=== PATIENT | female | born 1955 | race Caucasian/White ===

== ENCOUNTER 2017-02-12 10:40 | Outpatient (CLI) | payer BC ==
--- NOTE | 2017-02-28 11:43 | Mammography Report ---
DIGITAL SCREENING MAMMOGRAM: 02/12/2017 CLINICAL INDICATION: A 61-year-old with family history of breast cancer for screening. COMPARISON: Films from [place], [place] dated 10/27/2015, 05/12/2014, 05/28/2012, 04/10/2011. TECHNIQUE: Routine CC and MLO projections were obtained of the breasts. FINDINGS: The breasts again demonstrate scattered fibroglandular densities bilaterally. Circumscrib ed nodules in the left breast are stable. Coarse and punctate, typically benign calcifications are p resent. No suspicious masses, clustered microcalcifications, or regions of architectural distortion are identified. IMPRESSION: BENIGN FINDINGS. RECOMMENDATION: Routine annual screening unless otherwise clinically indicated. BIRADS CATEGORY 2 - BENIGN FINDINGS. STANDARD QUALIFYING STATEMENTS 1. This examination was reviewed with the aid of Computer-Aided Detection (CAD). 2. A negative or benign imaging report should not delay biopsy if clinically suspicious findings are present. Consider surgical consultation if warranted. More than 5% of cancers are not identified by i maging. 3. Dense breasts may obscure an underlying neoplasm. JOB #: [id number] EXT JOB #:[id number]
== END 2017-02-12 10:41 | disposition home or self-care (01) ==
LOC: DI 10:40
PROVIDERS: ATTEND Nurse Practitioner Family
DX: Z12.31 Encounter for screening mammogram for malignant neoplasm of breast (principal)
CPT/HCPCS: 77067

== ENCOUNTER 2017-02-12 10:43 | Outpatient (CLI) | payer BC ==
--- NOTE | 2017-02-13 14:18 | XRAY Report ---
RIGHT INDEX AND MIDDLE FINGERS, THREE VIEWS: 02/12/2017 CLINICAL HISTORY: Finger injury. FINDINGS: Mild soft tissue swelling is noted about the index and middle fingers. No acute fracture is seen. Spurring is noted about the periarticular margins of the distal interphalangeal joints of the index and middle fingers. This spurring is most pronounced along the dorsal aspect of the base of the distal phalanx of the middle finger. Prominent spurring and bone eburnation is also noted at the head of the middle phalanx of the middle finger. Subchondral cyst formation is noted in the head of the middle phalanx. Severe joint space narrowing is seen at the distal interphalangeal joint of both the index and middle fingers with findings especially pronounced in the middle finger. Mild soft tissue swelling is noted involving the index and middle fingers without fracture. IMPRESSION: SIGNIFICANT OSTEOARTHRITIS IS SEEN INVOLVING THE DISTAL INTERPHALANGEAL JOINTS OF THE INDEX AND MIDDLE FINGERS WITH FINDINGS MOST PRONOUNCED IN THE DISTAL INTERPHALANGEAL JOINT OF THE MIDDLE FINGER. JOB #: [id number] EXT JOB #: [id number] [facility]
--- NOTE | 2017-02-13 15:17 | XRAY Report ---
RIGHT HAND THREE VIEWS: 02/12/2017 CLINICAL HISTORY: Right hand injury. FINDINGS: Soft tissue swelling is seen involving the index and middle fingers. Significant narrowing of the distal interphalangeal joints of the index, middle, ring, and little fingers. Most pronounced osteoarthritic change is seen in the distal interphalangeal joint of the right middle finger. Signif icant periarticular spur formation is seen especially about the distal interphalangeal joint of the m iddle finger. Mild narrowing is noted at the articulation at the base of the 1st metacarpal and adjacent trapezium. Mild narrowing is seen at the 1st MP joint. IMPRESSION: 1. MILD SOFT TISSUE SWELLING IS SEEN INVOLVING THE INDEX AND MIDDLE FINGERS WITHOUT FRACTURE. 2. OSTEOARTHRITIS IS NOTED INVOLVING THE RIGHT HAND ESPECIALLY THE DISTAL INTERPHALANGEAL JOINTS. JOB #: [id number] EXT JOB #:[id number]
--- NOTE | 2017-02-13 15:25 | DEXA Report ---
DEXA SCAN: 02/12/2017 CLINICAL HISTORY: A 61-year-old female, postmenopausal. TECHNIQUE: Dual energy x-ray absorptiometry (DXA) was performed on a [employer] system. Regions measured are the lumbar spine, femur, neck in total. COMPARISON: None. In accordance with the International Society for Clinical Densitometry (ISCD) guidelines, data from previous exams may be reanalyzed using current recommendations and techniques. This is done to allow a more accurate basis for comparison with the current study. FINDINGS: The data for the lumbar spine is as follows: REGION BMD (g/cm/cm) T-SCORE Z-SCORE L1 0.860 -2.2 -0.9 L2 0.935 -2.2 -0.8 L3 1.109 -0.8 0.6 L4 1.076 -1.0 0.3 TOTAL 1.000 -1.5 -0.1 NOTE: All evaluable vertebrae are used for classification. The data for the hip is as follows: REGION BMD (g/cm/cm) T-SCORE Z-SCORE Neck 0.736 -2.2 -0.8 TOTAL 0.858 -1.2 -0.2 NOTE: The femoral neck or total proximal femur, whichever is lowest, is used for classification. * Denotes significant change at the 95% confidence level. Denotes dissimilar scan types or analysis methods. IMPRESSION: THE WHO CLASSIFICATION BASED ON THE INTERNATIONAL REFERENCE STANDARD IS OSTEOPENIA. THE FRACTURE RISK IS INCREASED. RECOMMENDATION: Patients with diagnosis of osteoporosis or osteopenia should have regular bone mineral density assessment. For those eligible for Medicare, routine testing is allowed once every 2 years. Testing frequency can be increased for patients who have rapidly progressing disease or for those who are receiving medical therapy to restore bone mass. COMMENT: World Health Organization (WHO) definitions for osteoporosis and osteopenia: NORMAL BMD: T-score at -1.0 or higher, fracture risk is low. OSTEOPENIA BMD: T-score between -1.0 and -2.5, fracture risk is increased. OSTEOPOROSIS BMD: T-score at -2.5 or lower, fracture risk high. National Osteoporosis Foundation recommends: 1. Obtain adequate dietary calcium (at least 1200 mg per day) and vitamin D (400 -800 international units per day). 2. Participate, as appropriate, in regular weightbearing and muscle- strengthening exercise. 3. Avoid tobacco use and reduce alcohol and caffeine intake. 4. For more detailed information see the website at www.NOF.org. MTDD
== END 2017-02-12 10:44 | disposition home or self-care (01) ==
LOC: DI 10:43
PROVIDERS: ATTEND Nurse Practitioner Family
DX: Z13.820 Encounter for screening for osteoporosis (principal); M85.89 Other specified disorders of bone density and structure, multiple sites; M19.041 Primary osteoarthritis, right hand; M79.89 Other specified soft tissue disorders
CPT/HCPCS: 73140; 77080

== ENCOUNTER 2017-10-18 11:33 | Outpatient (CLI) | payer OTHER ==
--- NOTE | 2017-10-19 10:01 | XRAY Report ---
DATE OF SERVICE: 10/18/2017 TWO VIEW CHEST: 10/18/2017 CLINICAL INDICATION: Chronic cough. FINDINGS: Frontal and lateral views of the chest demonstrate a normal cardiac silhouette. The lungs are clear. No effusion or pneumothorax is present. IMPRESSION: NORMAL CHEST. TD: 10/19/2017 11:00
== END 2017-10-18 11:34 | disposition home or self-care (01) ==
LOC: DI.S 11:33
PROVIDERS: ATTEND Nurse Practitioner Family
DX: R05 Cough (principal)
CPT/HCPCS: 71046

== ENCOUNTER 2018-02-05 13:13 | Outpatient (CLI) | payer OTHER ==
--- NOTE | 2018-02-05 14:25 | XRAY Report ---
TWO VIEW CHEST: 02/05/2018 CLINICAL INDICATION: Cough, right clavicular prominence. COMPARISON: 10/18/2017. FINDINGS: Frontal and lateral views of the chest demonstrate a normal cardiac silhouette. The lungs remain clear. No effusion or pneumothorax is seen. No gross bony abnormality is appreciated in the right clavicle on this single view. IMPRESSION: NORMAL CHEST, UNCHANGED. TD: 02/05/2018 13:57
== END 2018-02-05 13:14 | disposition home or self-care (01) ==
LOC: DI.S 13:13
PROVIDERS: ATTEND Registered Nurse
DX: R05 Cough (principal); M95.8 Other specified acquired deformities of musculoskeletal system
CPT/HCPCS: 71046

== ENCOUNTER 2018-03-15 09:12 | Outpatient (CLI) | payer OTHER ==
--- NOTE | 2018-03-18 13:25 | Mammography Report ---
Procedure Date: 03/15/2018 Accession Number: [id number] / [id number] Procedure: MGS - Screening Mammo Dig Bilat CPT Code: FULL RESULT: EXAM: Screening Mammo Dig Bilat DATE: 03/15/2018 9:28 AM CLINICAL HISTORY: 62-year-old nulliparous patient with family history of breast cancer for screening TECHNIQUE: Bilateral CC and MLO views were obtained. COMPARISON: 02/12/2017, 10/27/2015, 05/12/2014, 05/28/2012, 04/10/2011 FINDINGS: The breasts demonstrate scattered fibroglandular densities bilaterally. Coarse, typically benign calcifications are present. Circumscribed nodules in the left breast are stable. No suspicious masses, clustered microcalcifications, or regions of architectural distortion are identified. IMPRESSION: Benign findings RECOMMENDATION: Routine annual screening unless otherwise clinically indicated. BIRADS CATEGORY 2: Benign findings STANDARD QUALIFYING STATEMENTS: 1. This examination was reviewed with the aid of Computer-Aided Detection (CAD). 2. A negative or benign imaging report should not delay biopsy if clinically suspicious findings are present. Consider surgical consultation if warrented. More than 5% of cancers are not identified by imaging. 3. Dense breasts may obscure an underlying neoplasm.
== END 2018-03-15 09:13 | disposition home or self-care (01) ==
LOC: DI.S 09:12
PROVIDERS: ATTEND Registered Nurse
DX: Z12.31 Encounter for screening mammogram for malignant neoplasm of breast (principal); Z80.3 Family history of malignant neoplasm of breast
CPT/HCPCS: 77067

== ENCOUNTER 2018-07-22 09:39 | Day surgery (SDC) | payer OTHER ==
[2018-07-22] MEDS ORDERED: LACTATED RINGERS 1,000 ML IV ONE (10:15)
[2018-07-22] MEDS ORDERED: MIDAZOLAM 2 MG/2 ML VIAL IVP ONE (11:50)
[2018-07-22] MEDS ORDERED: fentaNYL 250 MCG/5 ML VIAL IVP ONE (11:50)
[2018-07-22 12:11] VITALS: BP 131/78
== END 2018-07-22 09:40 | disposition home or self-care (01) ==
LOC: SDS 09:39
PROVIDERS: ATTEND Surgery
PROC: 0DJD8ZZ Inspection of Lower Intestinal Tract, Via Natural or Artificial Opening Endoscopic (ICD-10-PCS; principal; 2018-07-22 10:45)
DX: R19.4 Change in bowel habit (principal); K64.8 Other hemorrhoids; Z80.0 Family history of malignant neoplasm of digestive organs; Z83.71 Family history of colonic polyps; F17.210 Nicotine dependence, cigarettes, uncomplicated
CPT/HCPCS: 45378; J3010; J7120

== ENCOUNTER 2018-09-28 12:40 | Outpatient (CLI) | payer OTHER ==
[2018-09-28 13:26] LABS: CREATININE 0.8 mg/dL (0.4-1.0)
--- NOTE | 2018-09-28 15:30 | CT Report ---
Reason: LEFT UPPER QUADRANT PAIN Procedure Date: 09/28/2018 Accession Number: [id number] / [id number] Procedure: CT - Abdomen/Pelvis W/ CPT Code: FULL RESULT: EXAM: CT ABDOMEN AND PELVIS EXAM DATE: 09/28/2018 03:00 PM. CLINICAL HISTORY: Left upper quadrant pain COMPARISONS: None. TECHNIQUE: Routine helical CT imaging was performed through the abdomen and pelvis. IV contrast: 100 mL Optiray 320. Enteric contrast: None. Reconstructions: Coronal and sagittal. In accordance with CT protocol optimization, one or more of the following dose reduction techniques were utilized for this exam: automated exposure control, adjustment of mA and/or KV based on patient size, or use of iterative reconstructive technique. FINDINGS: Lung Bases: Mild linear atelectasis and/or scarring in the inferomedial right middle lobe, inferior lingula, and left lower lobe base. Liver: Diffuse low attenuation of the hepatic parenchyma relative to the spleen, suggesting steatosis. Ill-defined low attenuation area with equivocal peripheral enhancement in segment 4B measuring approximately 3.5 x 2.5 x 2.5 cm (12/13, 02/07). Gallbladder/Bile Ducts: Unremarkable. No visualized stones or biliary ductal dilatation. Spleen: Normal. Pancreas: Normal. Adrenal Glands: Normal. Kidneys and Ureters: Tup circumscribed subcentimeter round hypoattenuating foci in the left renal cortex likely represent cysts. No stones, hydronephrosis, or hydroureter. Peritoneal Cavity/Bowel: No evidence for bowel obstruction or acute inflammatory process. The appendix is not seen. No free fluid, pneumoperitoneum, or adenopathy. Pelvic Organs: Post hysterectomy. The bladder is within normal limits. Vasculature: Mild atherosclerotic calcifications within the aorta and iliac arteries. Bones: Mild to moderate multilevel degenerative disk disease and facet arthropathy. No acute bony abnormality. Other: None. IMPRESSION: 1. Indeterminate low attenuation area in hepatic segment 4B with equivocal peripheral enhancement, which could represent hepatic mass lesion or atypical appearance of focal fatty infiltration. Recommend further characterization with liver protocol MRI abdomen with/without contrast. 2. No acute inflammatory or obstructive process identified to explain left upper quadrant pain. RADIA
[2018-09-28] MEDS ORDERED: IOVERSOL 320 100 ML VIAL IVP ONE (15:33)
[2018-09-28] MEDS ORDERED: IOVERSOL 320 50 ML VIAL PO ONE (15:33)
== END 2018-09-28 12:41 | disposition home or self-care (01) ==
LOC: LAB 12:40
PROVIDERS: ATTEND Nurse Practitioner Family
DX: R10.12 Left upper quadrant pain (principal)
CPT/HCPCS: 36415; 74177; 82565

== ENCOUNTER 2018-10-31 12:42 | Outpatient (CLI) | payer OTHER ==
[2018-10-31] MEDS ORDERED: GADOBUTROL 7.5 MMOL/7.5 ML VIAL ONE (13:10)
[2018-10-31] MEDS ORDERED: GADOBUTROL 7.5 MMOL/7.5 ML VIAL IVP ONE (14:17)
--- NOTE | 2018-10-31 17:17 | MRI Report ---
Reason: ABNORMAL FINDINGS ON DIAGNOSTIC IMAGING OF OTHER A Procedure Date: 10/31/2018 Accession Number: [id number] / [id number] Procedure: MRI - Abdomen W/WO CPT Code: FULL RESULT: EXAM: MR ABDOMEN WITH AND WITHOUT CONTRAST (MR LIVER) EXAM DATE: 10/31/2018 01:10 PM. CLINICAL HISTORY: Abnormal findings on diagnostic imaging. COMPARISON: ABDOMEN/PELVIS W/ 09/28/2018 2:50 PM. TECHNIQUE: Multiplanar breath-hold T1, T2, and DWI sequences obtained through the abdomen on an MR scanner. Images obtained before and after administration of 7 mL Gadavist intravenous contrast. Multiphase postcontrast images obtained of the liver and abdomen. FINDINGS: Lung Bases: Unremarkable. Liver: Mild diffuse fatty liver infiltration. There is a 3.1 x 2.8 x 3.5 cm region of more focal geographic fat deposition within posteromedial left liver lobe, mostly within segment 4B. There are more than 10 scattered tiny T2 hyperintense foci that are likely due to small cysts. Gallbladder: The gallbladder is partially distended and appears normal with no wall thickening or stone. Bile ducts: No intrahepatic or extrahepatic duct dilatation Pancreas: The pancreas appears normal with no mass or ductal dilatation. Spleen: The spleen appears normal. Kidneys: The kidneys appear normal with no mass or hydronephrosis. Small left upper renal cyst. Adrenals: The adrenals appear normal. Bowel: The visualized segments of the small bowel and colon appear normal with no inflammation or obstruction. Retroperitoneum: The retroperitoneal structures appear normal with no mass or lymphadenopathy. Other: None IMPRESSION: 1. Diffuse fatty liver infiltration with 3.5 cm geographic region of more pronounced fatty deposition within segment 4B. 2. Multiple small scattered simple liver cysts. 3. No suspicious liver lesion. RADIA
== END 2018-10-31 12:43 | disposition home or self-care (01) ==
LOC: DI 12:42
PROVIDERS: ATTEND Nurse Practitioner Family
DX: R93.5 Abnormal findings on diagnostic imaging of other abdominal regions, including retroperitoneum (principal); K76.0 Fatty (change of) liver, not elsewhere classified; K76.89 Other specified diseases of liver
CPT/HCPCS: 74183; A9585

== ENCOUNTER 2018-12-17 12:15 | Emergency (ER) | payer OTHER ==
[2018-12-17 12:25] VITALS: BP 149/72
== END 2018-12-17 13:25 | disposition left against medical advice (07) ==
LOC: ED 12:15
DX: Z53.21 Procedure and treatment not carried out due to patient leaving prior to being seen by health care provider (principal)

== ENCOUNTER 2018-12-19 08:33 | Outpatient (CLI) | payer OTHER ==
--- NOTE | 2018-12-19 11:22 | CT Report ---
Reason: ATELECTASIS,COUGH Procedure Date: 12/19/2018 Accession Number: [id number] / [id number] Procedure: CT - CHEST WO CPT Code: FULL RESULT: EXAM: CT CHEST EXAM DATE: 12/19/2018 08:45 AM. CLINICAL HISTORY: Atelectasis, cough. COMPARISONS: None. TECHNIQUE: Routine helical CT imaging was performed through the chest. IV contrast: None. Reconstructions: Coronal and sagittal. In accordance with CT protocol optimization, one or more of the following dose reduction techniques were utilized for this exam: automated exposure control, adjustment of mA and/or KV based on patient size, or use of iterative reconstructive technique. FINDINGS: Lungs/Pleura: There is a small amount of scarring/atelectasis of the right middle lobe and lingular regions without air space disease detected in other areas. There are no suspicious pulmonary nodules. There is no pleural effusion or pneumothorax. Mediastinum: There is no hilar or mediastinal lymphadenopathy. The aorta is mildly calcified. There is no cardiomegaly or pericardial effusion. Bones: Unremarkable. Visualized Abdomen: Unremarkable. Other: None. 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 Otherwise, no active airspace disease. RADIA
== END 2018-12-19 08:34 | disposition home or self-care (01) ==
LOC: DI 08:33
PROVIDERS: ATTEND Nurse Practitioner Family
DX: J98.11 Atelectasis (principal); R05 Cough
CPT/HCPCS: 71250

== ENCOUNTER 2019-01-14 09:35 | Outpatient (CLI) | payer OTHER ==
[2019-01-14] MEDS ORDERED: ALBUTEROL NEB 2.5 MG/3 ML INH ONE (10:30)
== END 2019-01-14 09:36 | disposition home or self-care (01) ==
LOC: RT 09:35
PROVIDERS: ATTEND Nurse Practitioner Family
DX: R05 Cough (principal)
CPT/HCPCS: 94010

== ENCOUNTER 2019-03-15 08:42 | Outpatient (CLI) | payer OTHER ==
--- NOTE | 2019-03-17 09:20 | CT Report ---
Reason: COUGH Procedure Date: 03/15/2019 Accession Number: [id number] / [id number] Procedure: CT - CHEST WO CPT Code: FULL RESULT: EXAM: CT CHEST EXAM DATE: 03/15/2019 09:12 AM. CLINICAL HISTORY: Cough. COMPARISONS: CHEST W/O 12/19/2018 8:41 AM. ABDOMEN W/WO 10/31/2018 1:10 PM. TECHNIQUE: Routine helical CT imaging was performed through the chest. IV contrast: None. Reconstructions: Coronal and sagittal. In accordance with CT protocol optimization, one or more of the following dose reduction techniques were utilized for this exam: automated exposure control, adjustment of mA and/or KV based on patient size, or use of iterative reconstructive technique. FINDINGS: Lungs/Pleura: Previously seen scarring/atelectasis in the lingula and right middle lobe has decreased with only a small amount remaining, therefore previously predominantly atelectasis. A 2 mm nodule is seen in the right lower lobe on image 35 series 4. No other active airspace disease is detected. There is no pleural effusion or pneumothorax. Mediastinum: Minimal to mild calcifications of the aortic arch. No adenopathy or masses. The heart and great vessels are normal. Bones: There are no aggressive osseous lesions. Visualized Abdomen: Hypodense area in segment 4B, previously characterized by MRI as focal fatty infiltration. This is not characterized on today's study. Other: None. IMPRESSION: Interval decrease in previously seen consolidative changes in the lingula and right middle lobe. Singular sub-3 mm lower lobe nodule on the left. Recommend follow-up of the described nodule(s) according to the following guidelines: Fleischner Society Recommendations 2017 MacMahon et al. Radiology 2017 Solid Nodules-Low Risk Patients: <6 mm (single or multiple) - No routine follow-up* Solid Nodules-High Risk Patients: <6 mm (single or multiple) -Optional CT at 12 months* RADIA
== END 2019-03-15 08:43 | disposition home or self-care (01) ==
LOC: DI 08:42
PROVIDERS: ATTEND Student in an Organized Health Care Education/Training Program
DX: R05 Cough (principal); R91.1 Solitary pulmonary nodule
CPT/HCPCS: 71250

== ENCOUNTER 2019-04-16 11:09 | Outpatient (CLI) | payer OTHER ==
--- NOTE | 2019-04-17 09:38 | Mammography Report ---
Reason: SCREENING MAMMO, [facility] BREAST CANC[facility] Procedure Date: 04/16/2019 Accession Number: [id number] / [id number] Procedure: MGS - Screening Mammo Dig Bilat CPT Code: FULL RESULT: EXAM: Screening Mammo Dig Bilat DATE: 04/16/2019 11:43 AM CLINICAL HISTORY: History of early menses. History of nulliparity. Screening encounter. Family history of breast cancer in the mother at the age of 58 and a maternal aunt at the age of 58. TECHNIQUE: (B) - Bilateral CC and MLO views were obtained. Left laterally exaggerated CC view is obtained. COMPARISON: 03/15/2018 through 04/10/2011. PARENCHYMAL PATTERN: (A) - The breast(s) demonstrate(s) scattered fibroglandular densities. FINDINGS: To isodense well-circumscribed left breast nodules demonstrate continued long-term stability, typically benign. There are no suspicious masses, calcifications, or areas of distortion. IMPRESSION: Benign findings. BI-RADS category 2. RECOMMENDATION: (ANNUAL) - Recommend routine annual screening mammography. BI-RADS CATEGORY: (2) - Benign Findings. STANDARD QUALIFYING STATEMENTS: 1. This examination was reviewed with the aid of Computer-Aided Detection (CAD). 2. A negative or benign imaging report should not preclude biopsy if clinically suspicious findings are present. 3. Dense breasts may obscure an underlying neoplasm. 4. This examination was reviewed without the aid of 3D breast imaging (tomosynthesis).
== END 2019-04-16 11:10 | disposition home or self-care (01) ==
LOC: DI.S 11:09
PROVIDERS: ATTEND Nurse Practitioner Family
DX: Z12.31 Encounter for screening mammogram for malignant neoplasm of breast (principal); Z80.3 Family history of malignant neoplasm of breast
CPT/HCPCS: 77067

== ENCOUNTER 2021-03-09 08:00 | Outpatient (CLI) | payer OTHER | END 2021-03-09 23:59 | disposition home or self-care (01) | LOC: LAB.S 08:00 | PROVIDERS: ATTEND Physician Assistant Medical | DX: R50.9 Fever, unspecified (principal); J02.9 Acute pharyngitis, unspecified; Z20.822 Contact with and (suspected) exposure to COVID-19 | CPT/HCPCS: 87070 ==

== ENCOUNTER 2021-03-09 08:00 | Outpatient (CLI) | payer OTHER ==
--- NOTE | 2021-03-09 10:24 | XRAY Report ---
PROCEDURE: Chest 2 View X-Ray INDICATIONS: COUGH TECHNIQUE: 2 view(s) of the chest. COMPARISON: CT chest 03/15/2019 FINDINGS: Surgical changes and devices: None. Lungs and pleura: No pleural effusions or pneumothorax. Lungs are clear. Mediastinum: Mediastinal contours are normal. Heart size is mildly enlarged. Bones and chest wall: No suspicious bony abnormalities. Soft tissues appear unremarkable. IMPRESSION: No acute pulmonary process. Reviewed by: Rosalba Garnica MD on 03/09/2021 10:23 AM PDT Approved by: Rosalba Garnica MD on 03/09/2021 10:23 AM PDT Station ID: [id number]
== END 2021-03-09 23:59 | disposition home or self-care (01) ==
LOC: DI.S 08:00
PROVIDERS: ATTEND Physician Assistant Medical
DX: R05 Cough (principal); R06.02 Shortness of breath; R50.9 Fever, unspecified; J02.9 Acute pharyngitis, unspecified; Z20.822 Contact with and (suspected) exposure to COVID-19
CPT/HCPCS: 87070

== ENCOUNTER 2021-05-07 19:15 | Emergency (ER) | payer MEDICARE, OTHER ==
[2021-05-07 19:26] VITALS: BP 136/70
[2021-05-07] MEDS ORDERED: oxyCODONE/ACET 5/325 Prepack 4 PO STA (19:50)
[2021-05-07] MEDS ORDERED: ROPIVACAINE 0.5% PF 20 ML VIAL SUBQ STA (19:50)
[2021-05-07] MEDS ORDERED: CLINDAMYCIN 150 MG CAPSULE PO STA (19:50)
--- NOTE | 2021-05-07 19:51 | ED Physician Documentation ---
PD HPI HEENT - Stated complaint Stated Complaint: TOOTH/MOUTH PX - Chief complaint Chief Complaint: Heent - History obtained from History obtained from: Patient (She had a left maxillary molar pulled 5 days ago. Over the next couple of days has had progressive severe pain in that area without fevers.) Review of Systems Constitutional: reports: Reviewed and negative. 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: Hysterectomy - Present Medications Home Medications: Ambulatory Orders Medication Instructions Recorded Confirmed Aspirin 81 mg PO 07/19/18 Cholecalciferol (Vitamin D3) 1,000 unit PO 07/19/18 [Vitamin D3] Estrogens, Conjugated [Premarin] 0.9 mg PO 07/19/18 Lisinopril [Zestril] 30 mg PO 07/19/18 Rosuvastatin Calcium 20 mg PO 07/19/18 Ubidecarenone [Co Q-10] 200 mg PO 07/19/18 Vit C/Ascorb Sod/Multivit-Min 500 mg PO 07/19/18 [Emergen-C 500 mg Chewable Tab] Oxycodone HCl/Acetaminophen 1 - 2 each PO Q6H PRN #14 tablet 05/07/21 [Percocet 5-325 mg Tablet] clindamycin HCL [Cleocin HCl] 300 mg PO QID #28 cap 05/07/21 - Allergies Allergies/Adverse Reactions: Allergies Allergy/AdvReac Type Severity Reaction Status Date / Time bacitracin Allergy Rash Verified 05/07/21 19:22 [From Neosporin ([id number])] neomycin Allergy Rash Verified 05/07/21 19:22 [From Neosporin (eri-[id number]-[id number])] polymyxin B Allergy Rash Verified 05/07/21 19:22 [From Neosporin ([id number]-ctj-gpoof)] pramoxine Allergy Rash Verified 05/07/21 19:22 [From Neosporin Plus PainRelief(alice)] - Social History Does the pt drink ETOH?: Yes PD ED PE NORMAL - Vitals Vital signs reviewed: Yes - General General: Alert and oriented X 3, Other (She appears uncomfortable) - HEENT HEENT: Other (Tender to the socket of 17 where the tooth was pulled. No trismus or facial swelling, no sublingual edema.) - Neck Neck: Supple, no meningeal sign, No bony TTP - Neuro Neuro: Alert and oriented X 3, Normal speech Results - Vitals Vitals: Vital Signs - 24 hr 05/07/21 19:22 Temperature 36.5 C Heart Rate 65 Respiratory 16 Rate Blood Pressure 136/70 H O2 Saturation 98 Oxygen O2 Source Room air Procedures - Regional nerve block Nerve block site: Other (Left inferior alveolar block done with 3 mL of 0.5% ropivacaine with excellent anesthesia and pain relief.) Departure - Departure Disposition: 01 Home, Self Care Clinical Impression: Jaw pain Condition: Good Record reviewed to determine appropriate education?: Yes Instructions: ED Tooth Pain Prescriptions: clindamycin HCL [Cleocin HCl] 300 mg PO QID #28 cap Oxycodone HCl/Acetaminophen [Percocet 5-325 mg Tablet] 1 - 2 each PO Q6H PRN #14 tablet PRN Reason: pain Comments: Follow-up with your dentist on Sunday, return for new or worsening symptoms.
== END 2021-05-07 20:13 | disposition home or self-care (01) ==
LOC: ED 19:15
DX: R68.84 Jaw pain (principal); I10 Essential (primary) hypertension
CPT/HCPCS: 64400; 96372; 99283; A9270; J2795

== ENCOUNTER 2021-07-11 09:16 | Outpatient (CLI) | payer MEDICARE ==
--- NOTE | 2021-07-11 14:22 | XRAY Report ---
PROCEDURE: Hand 3 View RT INDICATIONS: PAIN IN RIGHT HAND TECHNIQUE: 4 views of the hand(s) acquired. COMPARISON: None FINDINGS: Bones: No fractures or dislocations. There are degenerative changes with joint space narrowing of th e DIP joints most severely involving the middle finger DIP joint which has subchondral sclerosis and erosions of the articular surface consistent with osteoarthritis. No suspicious bony lesions. Soft tissues: No suspicious soft tissue calcifications. IMPRESSION: Osteoarthritis of the right hand, most severely involving the DIP joint of the middle finger. Reviewed by: Hugo Shaver on 07/11/2021 2:21 PM PDT Approved by: Hugo Shaver on 07/11/2021 2:21 PM PDT Station ID: [id number]
--- NOTE | 2021-07-11 16:16 | XRAY Report ---
PROCEDURE: Wrist 4 View RT INDICATIONS: PAIN IN RIGHT HAND TECHNIQUE: 4 views of the wrist were acquired. COMPARISON: None FINDINGS: Bones: Small, approximately 2-3 mm bone fragment with well-corticated margins noted adjacent to the r adial styloid process which may represent remote avulsion injury. No acute fracture or dislocation id entified. Moderate first CMC joint osteoarthritis. No suspicious bony lesions. Scaphoid view: Scaphoid is intact. Soft tissues: No suspicious soft tissue calcifications. IMPRESSION: No acute fracture. No acute osseous lesion. If there persistent symptoms or continued clinical concer n for pathology, then repeat plain film radiographs (7-10 days) or advanced imaging (CT, MR, bone sca n) should be considered for further evaluation. Reviewed by: Sahara Dillard MD, PhD on 07/11/2021 4:14 PM PDT Approved by: Sahara Dillard MD, PhD on 07/11/2021 4:14 PM PDT Station ID: [id number]
== END 2021-07-11 09:17 | disposition home or self-care (01) ==
LOC: DI.S 09:16
PROVIDERS: ATTEND Nurse Practitioner Family
DX: M79.641 Pain in right hand (principal)

== ENCOUNTER 2021-07-13 12:55 | Outpatient (CLI) | payer MEDICARE ==
--- NOTE | 2021-07-14 09:56 | Mammography Report ---
BILATERAL DIGITAL SCREENING MAMMOGRAM 3D/2D: 07/13/2021 CLINICAL: Family history of breast cancer. Comparison is made to exams dated: 04/16/2019 mammogram, 03/15/2018 mammogram, 02/12/2017 mammogram - [facility], and 10/27/2015 mammogram - [facility]. The tissue of both b reasts is predominantly fatty. There is a 0.5 cm irregular asymmetry with a circumscribed and microlobulated margin in the right jose ramon ast at 1 o'clock middle depth 8 cm from the nipple. No other significant masses, calcifications, or other findings are seen in either breast. IMPRESSION: INCOMPLETE: NEEDS ADDITIONAL IMAGING EVALUATION The 0.5 cm irregular asymmetry in the right breast is indeterminate. Additional views with possible ultrasound are recommended. This exam was interpreted at Station ID: [id number]. NOTE: For mammograms, a report in lay terms will be sent to the patient. Approximately 15% of breast malignancies will not be visualized mammographically. In the management of a palpable breast mass, a negative mammogram must not discourage biopsy of a clinically suspicious lesion. Electronically Signed By: Hugo Shaver acr/:07/13/2021 14:19:16 ACR BI-RADS Category 0: Incomplete 3340F PARENCHYMAL PATTERN: (F) - The breast(s) demonstrate(s) diffuse fatty replacement. BI-RADS CATEGORY: (0) - 0 Mammo and [place] [id number] Immediate follow-up LATERALITY: (R)
== END 2021-07-13 12:56 | disposition home or self-care (01) ==
LOC: DI.S 12:55
PROVIDERS: ATTEND Nurse Practitioner Family
DX: Z12.31 Encounter for screening mammogram for malignant neoplasm of breast (principal); Z80.3 Family history of malignant neoplasm of breast; N64.89 Other specified disorders of breast

== ENCOUNTER 2021-08-11 08:37 | Outpatient (CLI) | payer MEDICARE ==
--- NOTE | 2021-08-12 07:51 | Mammography Report ---
UNILATERAL RIGHT DIGITAL DIAGNOSTIC MAMMOGRAM 3D/2D: 08/11/2021 CLINICAL: Patient returns today to evaluate a focal asymmetry in the right breast. Comparison is made to exams dated: 07/13/2021 mammogram, 04/16/2019 mammogram, 03/15/2018 mammogram, mammogram - [facility], and 10/27/2015 mammogram - [facility]. There are scattered fibroglandular elements in right breast. There is a 0.5 cm oval equal density focal asymmetry with an obscured margin in the right breast at 1 o'clock middle depth. No other significant masses or calcifications are seen in the breast. IMPRESSION: INCOMPLETE: NEEDS ADDITIONAL IMAGING EVALUATION The 0.5 cm oval equal density focal asymmetry in the right breast resembles a cyst or a lymph node an d is indeterminate. An ultrasound is recommended for further evaluation and is scheduled to immediately follow this exami nation. This exam was interpreted at Station ID: [id number]. NOTE: For mammograms, a report in lay terms will be sent to the patient. Approximately 15% of breast malignancies will not be visualized mammographically. In the management of a palpable breast mass, a negative mammogram must not discourage biopsy of a clinically suspicious lesion. Electronically Signed By: Wellington Vinson M.D. aty/:08/11/2021 10:32:11 ACR BI-RADS Category 0: Incomplete 3340F PARENCHYMAL PATTERN: (A) - The breast(s) demonstrate(s) scattered fibroglandular densities. BI-RADS CATEGORY: (0) - 0 Ultrasound [id number] Immediate follow-up LATERALITY: (R)
--- NOTE | 2021-08-12 07:51 | Ultrasound Report ---
LIMITED ULTRASOUND OF RIGHT BREAST: 08/11/2021 CLINICAL: Patient returns today to evaluate a focal asymmetry in the right breast. Comparison is made to exams dated: 08/11/2021 mammogram, 07/13/2021 mammogram, 04/16/2019 mammogram, 03/15/2018 mammogram - [facility], 10/27/2015 mammogram - [facility], an d 02/12/2017 mammogram - [facility]. Color flow and real-time ultrasound of the right breast 12-1 o'clock region were performed. Field sca le images of the real-time examination were reviewed. There is a 0.6 cm x 0.2 cm x 0.3 cm wider than tall oval cyst in the right breast at 1 o'clock middle depth 5 cm from the nipple. This oval cyst is anechoic with a well-defined boundary. This correlat es with mammography findings. IMPRESSION: BENIGN There is no sonographic evidence of malignancy. The 0.6 cm x 0.2 cm x 0.3 cm wider than tall oval simple cyst in the right breast is benign. A 1 year screening mammogram is recommended. Findings and recommendations were conveyed to the patient during today's evaluation. This exam was interpreted at Station ID: [id number]. Electronically Signed By: Wellington Vinson M.D. aty/:08/11/2021 10:57:15 Ultrasound BI-RADS: 2 Benign BI-RADS CATEGORY: (2) - 2 RECOMMENDATION: (ANNUAL) - Recommend routine annual screening mammography. [id number] 1 year screening LATERALITY: (B)
== END 2021-08-11 08:38 | disposition home or self-care (01) ==
LOC: DI 08:37
PROVIDERS: ATTEND Nurse Practitioner Family
DX: N60.01 Solitary cyst of right breast (principal)

== ENCOUNTER 2021-08-11 08:38 | Outpatient (CLI) | payer MEDICARE ==
--- NOTE | 2021-08-11 16:26 | DEXA Report ---
PROCEDURE: Dexa Spine and/or Hip INDICATIONS: OSTEOPENIA TECHNIQUE: Dual energy x-ray absorptiometry (DXA) was performed on a [employer] System. Regions measur ed are the AP Spine, femoral neck, and if needed forearm. COMPARISON: DEXA 02/12/2017 FINDINGS: Lumbar Spine: Bone Mineral Density 1.012 g/cm/cm,T score -1.4, compared to -1.5 Left Hip: Bone Mineral Density 0.883 g/cm/cm,T score -1.0, compared to -1.2 Left Femoral Neck: Bone Mineral Density 0.716 g/cm/cm, T score -2.3, compared to -2.2 (T score greater or equal to -1.0: NORMAL) (T score from -1.1 to -2.4: OSTEOPENIA) (T score less than or equal to -2.5 to: OSTEOPOROSIS) Impression: Stable interval exam demonstrating severe osteopenia within the left femoral neck as well as mild osteopenia within the spine. Patients with diagnosis of osteoporosis or osteopenia should have regular bone mineral density assess ment. For those eligible for Medicare, routine testing is allowed once every 2 years. Testing frequ ency can be increased for patients who have rapidly progressing disease or for those who are receivin g medical therapy to restore bone mass. Reviewed by: Rosalba Garnica MD on 08/11/2021 4:24 PM PST Approved by: Rosalba Garnica MD on 08/11/2021 4:24 PM PST Station ID: [id number]
--- NOTE | 2021-08-12 00:27 | CT Report ---
PROCEDURE: Low Dose Lung Cancer Screen INDICATIONS: Hx of smoking, nicotine dependence TECHNIQUE: Noncontrast low-dose images were acquired from the pulmonary apices to the posterior costophrenic ang les. Multiplanar MIP reformats were then acquired. For radiation dose reduction, the following was used: automated exposure control, adjustment of mA and/or kV according to patient size. COMPARISON: Chest CT without contrast, 12/11/2018 and 03/15/2019. FINDINGS: Image quality: Excellent. Lungs and pleura: No suspicious pulmonary nodules. A 2 mm nodule in the left lower lobe (series 4 im age 168) appears unchanged since 12/11/2018, likely benign. Right middle lobe and lingular scars and a telectasis. No pulmonary infiltrate or pleural effusion. Mediastinum: Heart size is normal. No pericardial effusion. No mediastinal adenopathy by size crit eria. Thoracic aorta and central pulmonary arteries are normal in size. Esophagus is normal in rajendra delia. No hiatal hernia. Bones and chest wall: No suspicious bony lesions. No vertebral body compression fractures. No axil elizabeth or supraclavicular adenopathy by size criteria. The thyroid is normal in size and there are no incidental findings. Abdomen: Visualized upper abdomen solid organs and bowel loops appear normal in the absence of contr ast. IMPRESSION: 1. No suspicious pulmonary nodules. ACR lung RADS category 2. Recommend annual screening lung CT in 1 2 months. Reviewed by: Maura Killian MD on 08/12/2021 12:25 AM PST Approved by: Maura Killian MD on 08/12/2021 12:25 AM PST Station ID: [id number]
== END 2021-08-11 08:39 | disposition home or self-care (01) ==
LOC: DI 08:38
PROVIDERS: ATTEND Nurse Practitioner Family
DX: M85.89 Other specified disorders of bone density and structure, multiple sites (principal); Z12.2 Encounter for screening for malignant neoplasm of respiratory organs; F17.200 Nicotine dependence, unspecified, uncomplicated; R92.8 Other abnormal and inconclusive findings on diagnostic imaging of breast; N60.01 Solitary cyst of right breast; K21.9 Gastro-esophageal reflux disease without esophagitis

== ENCOUNTER 2021-08-11 08:44 | Outpatient (CLI) | payer MEDICARE | END 2021-08-11 08:45 | disposition home or self-care (01) | LOC: LAB 08:44 | PROVIDERS: ATTEND Nurse Practitioner Family | DX: K21.9 Gastro-esophageal reflux disease without esophagitis (principal) ==

== ENCOUNTER 2021-10-13 10:20 | Outpatient (CLI) | payer MEDICARE | END 2021-10-13 10:21 | disposition home or self-care (01) | LOC: LAB.S 10:20 | PROVIDERS: ATTEND Surgery | DX: Z01.812 Encounter for preprocedural laboratory examination (principal); Z80.0 Family history of malignant neoplasm of digestive organs; K21.9 Gastro-esophageal reflux disease without esophagitis; F41.9 Anxiety disorder, unspecified; J98.4 Other disorders of lung; Z20.822 Contact with and (suspected) exposure to COVID-19 ==

== ENCOUNTER 2021-10-14 09:56 | Day surgery (SDC) | payer MEDICARE ==
[2021-10-14] MEDS ORDERED: LACTATED RINGERS 1,000 ML IV ONE ×2 (10:03→12:02)
[2021-10-14] MEDS ORDERED: ONDANSETRON 4 MG/2 ML VIAL ONE ×2 (10:46→12:35)
--- NOTE | 2021-10-14 10:47 | ANESTHESIA ---
Pre-Anesthesia VS, & Labs - Diagnosis family hx of colon cancer, GERD - Procedure egd, colonoscopy Vital Signs: Temp Pulse Resp BP Pulse Ox 36.6 C 63 16 146/75 H 98 10/14/21 10:07 10/14/21 10:07 10/14/21 10:07 10/14/21 10:07 10/14/21 10:07 Height: 5 ft Weight (kg): 69.4 kg Body Mass Index: 29.9 BMI Classification: Overweight - NPO >8 hours - Is Patient ?: No - Lab Results Lab results reviewed: Yes Home Medications and Allergies Aspirin 81 mg PO DAILY 07/19/18 Estrogens, Conjugated [Premarin] 0.9 mg PO DAILY 07/19/18 Allergies/Adverse Reactions: Allergies Allergy/AdvReac Type Severity Reaction Status Date / Time bacitracin Allergy Rash Verified 10/14/21 10:21 [From Neosporin ([id number])] neomycin Allergy Rash Verified 10/14/21 10:21 [From Neosporin ([id number]-emc-fcubt)] polymyxin B Allergy Rash Verified 10/14/21 10:21 [From Neosporin ([id number]-jug-zwzao)] pramoxine Allergy Rash Verified 10/14/21 10:21 [From Neosporin Plus PainRelief(alice)] Anes History & Medical History - Anesthetic History Anesthesia Complications: reports: No previous complications Family history of Anesthesia Complications: Denies Family history of Malignant Hyperthermia: Denies - Medical History Cardiovascular: reports: Hypertension, High cholesterol Pulmonary: reports: None Gastrointestinal: reports: GERD, Colon polyps Urinary: reports: None Musculoskeletal: reports: Osteoarthritis Endocrine/Autoimmune: reports: None Skin: reports: None Smoking Status: Current every day smoker - Surgical History General: reports: Colonoscopy Gynecologic: reports: Hysterectomy Orthopedic: reports: Arthroscopic surgery, Other Exam General: Alert, Oriented x3, Cooperative, No acute distress Dental: WNL Mouth Openin Fingerbreadth Neck Mobility: Normal Mallampati classification: II Plan Anesthesia Type: General, Total IV Consent for Procedure(s) Verified and Reviewed: Yes Code Status: Attempt Resuscitation ASA classification: 2-Mild systemic disease Is this case an emergency?: No
[2021-10-14] MEDS ORDERED: LIDOCAINE-MPF 2% 5 ML VIAL ONE (10:55)
[2021-10-14] MEDS ORDERED: PROPOFOL 500 MG/50 ML 500 MG/50 ML VIAL ONE (10:55)
[2021-10-14] MEDS ORDERED: ONDANSETRON 4 MG/2 ML VIAL IVP SCH (11:00)
--- NOTE | 2021-10-14 11:03 | ANESTHESIA ---
Pre-Anesthesia VS, & Labs Vital Signs: Temp Pulse Resp BP Pulse Ox 36.6 C 63 16 146/75 H 98 10/14/21 10:07 10/14/21 10:07 10/14/21 10:07 10/14/21 10:07 10/14/21 10:07 Height: 5 ft Weight (kg): 69.4 kg Body Mass Index: 29.9 BMI Classification: Overweight Home Medications and Allergies Aspirin 81 mg PO DAILY 07/19/18 Estrogens, Conjugated [Premarin] 0.9 mg PO DAILY 07/19/18 Allergies/Adverse Reactions: Allergies Allergy/AdvReac Type Severity Reaction Status Date / Time bacitracin Allergy Rash Verified 10/14/21 10:21 [From Neosporin ([id number]-[id number]-rrecr)] neomycin Allergy Rash Verified 10/14/21 10:21 [From Neosporin (rwr-cwy-[id number])] polymyxin B Allergy Rash Verified 10/14/21 10:21 [From Neosporin (dkv-pro-vross)] pramoxine Allergy Rash Verified 10/14/21 10:21 [From Neosporin Plus PainRelief(alice)] Anes History & Medical History - Medical History Cardiovascular: reports: Hypertension, High cholesterol Pulmonary: reports: None Gastrointestinal: reports: GERD, Colon polyps Urinary: reports: None Musculoskeletal: reports: Osteoarthritis Endocrine/Autoimmune: reports: None Skin: reports: None - Surgical History General: reports: Colonoscopy Gynecologic: reports: Hysterectomy Orthopedic: reports: Arthroscopic surgery, Other
[2021-10-14] MEDS ORDERED: PROPOFOL 200 MG/20 ML VIAL IVP ONE ×2 (11:32→11:46)
[2021-10-14] MEDS ORDERED: GLYCOPYRROLATE 1 MG/5 ML VIAL ONE (11:38)
--- NOTE | 2021-10-14 12:42 | ANESTHESIA POST OP EVALUATION ---
Anesthesia Post Eval - Post Anesthesia Eval Vitals: Last Vital Signs Temp 36.1 C L 10/14/21 12:15 Pulse 70 10/14/21 12:15 Resp 22 10/14/21 12:15 BP 158/81 H 10/14/21 12:15 Pulse Ox 94 10/14/21 12:15 CV Function Including HR & BP: Stable Pain Control: Satisfactory Nausea & Vomiting: Negative Mental Status: Baseline Respiratory Status: Airway Patent Hydration Status: Satisfactory Anesthesia Complications: None
[2021-10-14 13:20] VITALS: BP 154/81
== END 2021-10-14 09:57 | disposition home or self-care (01) ==
LOC: SDS 09:56
PROVIDERS: ATTEND Surgery
PROC: 0DBF8ZX Excision of Right Large Intestine, Via Natural or Artificial Opening Endoscopic, Diagnostic (ICD-10-PCS; 2021-10-14)
PROC: 0DB98ZX Excision of Duodenum, Via Natural or Artificial Opening Endoscopic, Diagnostic (ICD-10-PCS; 2021-10-14)
PROC: 0DB78ZX Excision of Stomach, Pylorus, Via Natural or Artificial Opening Endoscopic, Diagnostic (ICD-10-PCS; 2021-10-14)
PROC: 0DB28ZX Excision of Middle Esophagus, Via Natural or Artificial Opening Endoscopic, Diagnostic (ICD-10-PCS; 2021-10-14)
PROC: 0DB38ZX Excision of Lower Esophagus, Via Natural or Artificial Opening Endoscopic, Diagnostic (ICD-10-PCS; 2021-10-14)
PROC: 0DBG8ZX Excision of Left Large Intestine, Via Natural or Artificial Opening Endoscopic, Diagnostic (ICD-10-PCS; principal; 2021-10-14 11:00)
PROC: 0DBN8ZX Excision of Sigmoid Colon, Via Natural or Artificial Opening Endoscopic, Diagnostic (ICD-10-PCS; 2021-10-14 11:00)
DX: Z12.11 Encounter for screening for malignant neoplasm of colon (principal); K63.5 Polyp of colon; K63.89 Other specified diseases of intestine; Z80.0 Family history of malignant neoplasm of digestive organs; F17.210 Nicotine dependence, cigarettes, uncomplicated; F41.9 Anxiety disorder, unspecified; J98.4 Other disorders of lung; K21.9 Gastro-esophageal reflux disease without esophagitis; K20.90 Esophagitis, unspecified without bleeding
CPT/HCPCS: 43239; 45380; J7120

== ENCOUNTER 2021-10-19 10:45 | Outpatient (CLI) | payer MEDICARE ==
[2021-10-19] MEDS ORDERED: IOPAMIDOL-300 50 ML VIAL ONE (11:03)
[2021-10-19 11:15] LABS: ALBUMIN 4.5 g/dL (3.2-5.5); ALBUMIN/GLOBULIN RATIO 1.5 (1.0-2.2); BILIRUBIN,TOTAL 0.7 mg/dL (0.2-1.0); CALCIUM 9.7 mg/dL (8.5-10.3); CREATININE 0.9 mg/dL (0.4-1.0); TOTAL PROTEIN 7.6 g/dL (6.7-8.2)
[2021-10-19] MEDS ORDERED: iohexoL-300 100 ML VIAL ONE (11:50)
--- NOTE | 2021-10-19 12:43 | CT Report ---
PROCEDURE: Abdomen/Pelvis W INDICATIONS: ABDOMINAL PAIN CONTRAST: IV CONTRAST: Isovue 300 ml: 100 PO CONTRAST: Isovue 300 ml50 TECHNIQUE: After the administration of contrast, 5 mm thick sections acquired from the diaphragms to the sym physis. 5 mm thick coronal and sagittal reformats were acquired. For radiation dose reduction, the following was used: automated exposure control, adjustment of mA and/or kV according to patient size . COMPARISON: CT abdomen and pelvis dated 09/28/2018, MRI of the abdomen with and without contrast dated 10/31/2018 FINDINGS: Image quality: Excellent. ABDOMEN: Lung bases: Lung bases are clear. Heart size is normal. Solid organs: Liver and spleen are normal in size and enhancement. Again noted is diffuse atrophy in filtration of the liver, slightly more pronounced compared to the previous study. Again noted is ill- defined lower density in segment IVb of the left lobe, which has previously been noted to represent f ocally increased pronounced fatty deposition. Gallbladder is unremarkable. Biliary system is non dil ated. Pancreas enhances normally. No adrenal nodules. Kidneys demonstrate normal size and enhancem ent, without hydronephrosis. Peritoneum and bowel: Mild diffuse wall thickening and enhancement of the rectum and distal sigmoid. Bowel is otherwise unremarkable in appearance. No free air or free fluid or abscess. Nodes and vessels: No retroperitoneal or mesenteric adenopathy by size criteria. Aorta and inferior vena cava are normal in size. Miscellaneous: No ventral hernias. PELVIS: Genitourinary: Bladder wall thickness is normal. Miscellaneous: No inguinal hernias or adenopathy. Uterus is surgically absent. Bones: No suspicious bony lesions. No vertebral body compression fractures. Lumbar degenerative ch sachin. IMPRESSION: 1. Mild wall thickening and enhancement of the rectum and distal sigmoid consistent with distal colit is. Consider infectious versus inflammatory etiologies. 2. Slight interval worsening of diffuse hepatic steatosis. The focally more prominent fatty change is again noted in segment IVb of the left lobe of the liver. Reviewed by: Zana Alvarenga MD on 10/19/2021 12:42 PM PST Approved by: Zana Alvarenga MD on 10/19/2021 12:42 PM PST Station ID: [id number]
[2021-10-19] MEDS: IOPAMIDOL-300 50 ML VIAL PO ONE (13:06)
[2021-10-19] MEDS: iohexoL-300 100 ML VIAL IVP ONE (13:06)
== END 2021-10-19 10:46 | disposition home or self-care (01) ==
LOC: DI 10:45
PROVIDERS: ATTEND Nurse Practitioner Family
DX: R10.9 Unspecified abdominal pain (principal); K62.89 Other specified diseases of anus and rectum; K63.89 Other specified diseases of intestine; K76.0 Fatty (change of) liver, not elsewhere classified
CPT/HCPCS: 36415; 74177; 80053; Q9967

== ENCOUNTER 2021-12-18 03:48 | Emergency (ER) | payer MEDICARE ==
--- NOTE | 2021-12-18 04:44 | ED Physician Documentation ---
PD HPI UPPER EXT INJURY - Stated complaint Stated Complaint: LT ARM PAIN IN CAST - Chief complaint Chief Complaint: Ext Problem - History obtained from History obtained from: Patient - Additonal information Additional information: Patient is a 66-year-old right-handed female who is up-to-date on her tetanus with an injury to her left thumb.She was seen yesterday afternoon after getting her left thumb caught in a pneumatic wood splitter at home. She was found to have an open fracture.Wound was sutured and a thumb spica splint was applied. Arrangements were made for patient to be seen by hand surgeon at [facility]. Hand surgeon did reach out to her this evening and is scheduling her for surgery on Sunday. She had adequate pain control with Digital block while in the emergency department. However pain Returned at 9 PM. She took half of her [place] pill that she was given. This did not give any relief. She took an additional 1-1/2 pills which gave her relief until midnight.Due to continued pain she took 1 pill of Percocet 5-325 mg that she had leftover from dental pain last year at around 3 PM. She states it is now just starting to kick in but she still is experiencing significant pain. She is concerned about pain control until Sunday when she is scheduled to see the hand surgeon. Review of Systems Constitutional: denies: Fever Nose: denies: Congestion Cardiac: denies: Chest pain / pressure Respiratory: denies: Cough GI: denies: Abdominal Pain, Vomiting Skin: reports: Laceration (s) Musculoskeletal: reports: Extremity pain Neurologic: denies: Headache PD PAST MEDICAL HISTORY - Past Medical History Past Medical History: Yes Cardiovascular: Hypertension, High cholesterol Respiratory: None Endocrine/Autoimmune: None GI: GERD, Colon polyps : None HEENT: None Psych: None Musculoskeletal: Osteoarthritis Derm: None - Past Surgical History Past Surgical History: Yes General: Colonoscopy Ortho: Arthroscopic surgery, Other /ABLE BODIED SEAMAN: Hysterectomy - Present Medications Home Medications: Ambulatory Orders Medication Instructions Recorded Confirmed Aspirin 81 mg PO DAILY 07/19/18 10/14/21 Estrogens, Conjugated [Premarin] 0.9 mg PO DAILY 07/19/18 12/18/21 cephALEXin [Keflex] 500 mg PO Q6H #28 cap 12/17/21 12/18/21 Oxycodone HCl/Acetaminophen 1 each PO Q6H PRN #8 tablet 12/18/21 [Percocet 5-325 mg Tablet] - Allergies Allergies/Adverse Reactions: Allergies Allergy/AdvReac Type Severity Reaction Status Date / Time bacitracin Allergy Rash Verified 12/17/21 16:33 [From Neosporin ([id number]-[id number]-umgfi)] neomycin Allergy Rash Verified 12/17/21 16:33 [From Neosporin (wus-ofo-ajpyy)] polymyxin B Allergy Rash Verified 12/17/21 16:33 [From Neosporin (abx-evv-[id number])] pramoxine Allergy Rash Verified 12/17/21 16:33 [From Neosporin Plus PainRelief(alice)] - Social History Does the pt smoke?: No Smoking Status: Never smoker Does the pt drink ETOH?: Yes - POLST Patient has POLST: No PD ED PE NORMAL - General General: Alert and oriented X 3, No acute distress, Well developed/nourished - HEENT HEENT: Atraumatic - Respiratory Respiratory: No respiratory distress - Extremities Extremities: Other (Lacerations present distal left thumb with sutures in place.Sensation to the tip appears intact, bleeding is well controlled,) - Neuro Neuro: Alert and oriented X 3, Normal speech - Psych Psych: Normal mood, Normal affect Results - Vitals Vitals: Vital Signs - 24 hr 12/18/21 12/18/21 03:55 05:34 Temperature 36.1 C L 36.0 C L Heart Rate 64 64 Respiratory 16 16 Rate Blood Pressure 186/64 H 147/84 H O2 Saturation 100 95 Oxygen O2 Source Room air PD MEDICAL DECISION MAKING - ED course ED course: Patient seen earlier yesterday for an open fracture to her left thumb that was repaired and splinted with worsening pain.Splint was removed and digit was ex amined.Bleeding is controlled. New splint was applied.Patient was also given a dose of IM pain medication. Reviewed plan for pain management going forth. She does not feel the hydrocodone is helping her. She has 1 pill left that was dispensed from the emergency department. She has a bottle of Percocet with 14 pills (5-325 mg). She did not feel that 1 pill of Percocet at a time was helping her. I recommended taking 1.5 to 2 pills at a time every 6 hours as needed for pain control. I will additionally send a small prescription of Percocet to the pharmacy so that she has enough to last her until Sunday. Departure - Departure Disposition: 01 Home, Self Care Clinical Impression: Uncontrolled pain Fracture of thumb, left, open Qualifiers: Encounter type: subsequent encounter Phalanx: distal Fracture alignment: nondisplaced Fracture healing: with routine healing Qualified Code(s): S62.525D - Nondisplaced fracture of distal phalanx of left thumb, subsequent encounter for fracture with routine healing Condition: Stable Instructions: ED Fx Finger Open, ED Splint Care Fiberglass Prescriptions: Oxycodone HCl/Acetaminophen [Percocet 5-325 mg Tablet] 1 each PO Q6H PRN #8 tablet PRN Reason: pain Comments: You are having significant pain from your fracture and cut on your thumb. A new splint was applied. Please keep this on and dry until you follow-up with a hand surgeon. You currently have A bottle of Percocet (5-325mg) With 14 pills. If 1 pill alone is not helping you with pain, please take 1.5 to 2 pills at a time every 6 hours as needed for pain. I will send a small prescription for additional Percocet to the [facility] in [place] so that you have enough until you are seen by the hand surgeon on Sunday.Percocet also contains acetaminophen/tylenol. Please ensure that you are daily/Intake of acetaminophenTylenol does not exceed 3000 mg/day Percocet is a narcotic pain medication. There are potentially dangerous and addictive medications that should be used carefully.Do not drink or drive while taking these medications. Please do not take the hydrocodone ([place]) You were given . Discharge Date/Time: 12/18/21 05:36
[2021-12-18] MEDS: HYDROmorphone 1 MG/ML CARPUJECT IM STA (04:50)
[2021-12-18 05:36] VITALS: BP 147/84
== END 2021-12-18 05:36 | disposition home or self-care (01) ==
LOC: ED 03:48
DX: S62.502B Fracture of unspecified phalanx of left thumb, initial encounter for open fracture (principal)
CPT/HCPCS: 96372; 99282; 99283; J1170

== ENCOUNTER 2022-01-29 18:03 | Emergency (ER) | payer MEDICARE ==
[2022-01-29] MEDS ORDERED: BUPIVACAINE 0.5% PF 10 ML VIAL SUBQ STA (18:13)
--- NOTE | 2022-01-29 18:14 | ED Physician Documentation ---
PD HPI UPPER EXT INJURY - Stated complaint Stated Complaint: POST OP/LT THUMB SWELL - History obtained from History obtained from: Patient - Additonal information Additional information: 66-year-old woman had a complicated open fracture of the left thumb on December 17. Subsequently she had ORIF on December 19 at [facility]. She had her K wires out about 4 days ago and it was doing very well. But over the last 3 days or so has developed increasing pain and swelling which has become intolerable today. She denies fevers. 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: Hysterectomy - Present Medications Home Medications: Ambulatory Orders Medication Instructions Recorded Confirmed Aspirin 81 mg PO DAILY 07/19/18 01/29/22 Estrogens, Conjugated [Premarin] 0.9 mg PO DAILY 07/19/18 01/29/22 HYDROmorphone [Dilaudid] 1 - 2 tab PO Q4H PRN #20 tablet 01/29/22 cephALEXin [Keflex] 500 mg PO Q6H #28 cap 01/29/22 - Allergies Allergies/Adverse Reactions: Allergies Allergy/AdvReac Type Severity Reaction Status Date / Time bacitracin Allergy Rash Verified 01/29/22 18:17 [From Neosporin ([id number]-[id number])] neomycin Allergy Rash Verified 01/29/22 18:17 [From Neosporin (iil-oze-hwuue)] polymyxin B Allergy Rash Verified 01/29/22 18:17 [From Neosporin (jnz-yjc-jxfbh)] pramoxine Allergy Rash Verified 01/29/22 18:17 [From Neosporin Plus PainRelief(alice)] - Social History Does the pt smoke?: No Smoking Status: Never smoker Does the pt drink ETOH?: Yes - POLST Patient has POLST: No PD ED PE NORMAL - Vitals Vital signs reviewed: Yes - General General: Alert and oriented X 3, No acute distress - Extremities Extremities: Other (The left thumb is circumferentially swollen to just proximal to the interphalangeal joint with limited range of motion due to pain. It is not held in fracture flexion though and there is no pain with palpation of the flexor tendon sheath.) - Neuro Neuro: Alert and oriented X 3, Normal speech - Psych Psych: Normal mood, Normal affect Results - Vitals Vitals: Vital Signs - 24 hr 01/29/22 01/29/22 01/29/22 18:13 19:51 20:40 Temperature 37.1 C 37.3 C Heart Rate 80 80 61 Respiratory 20 22 13 Rate Blood Pressure 196/94 H 147/79 H 189/73 H O2 Saturation 99 96 97 01/29/22 20:46 Temperature Heart Rate 81 Respiratory 21 Rate Blood Pressure 146/116 H O2 Saturation 98 Oxygen O2 Source Room air Procedures - Abscess I&D (location) L thumb Preparation: Marcaine 0.25% Incision: Incised with scalpel Other: Pt tolerated well - Procedural sedation Sedation prep: Informed consent, Last meal (4pm) Sedation Medications: propofol (100mg then 40 mg IVP) Mallampati classification: I Patient status during sedation: Responds to tactile Sedation recovery: Recovered uneventfully Time in sedation (Minutes): 10 PD MEDICAL DECISION MAKING - ED course ED course: 66-year-old woman presents with left thumb infection. She did not want to go to [facility] where her prior surgery was attempted to block her several times and she had insufficient pain control so ended up doing some procedural sedation. When she was sedated I was able to poke around to the thumb and did not really find it purulent spot. A couple very small incisions were made and no purulent material was obtained. Subsequently I spoke with the on-call orthopedist at [facility] and he will make sure she is seen in the next day or 2. Departure - Departure Disposition: 01 Home, Self Care Clinical Impression: Cellulitis of thumb, left Condition: Good Record reviewed to determine appropriate education?: Yes Instructions: Cellulitis Dc Prescriptions: HYDROmorphone [Dilaudid] 1 - 2 tab PO Q4H PRN #20 tablet PRN Reason: Pain cephALEXin [Keflex] 500 mg PO Q6H #28 cap Comments: Keep your thumb elevated is much as possible. I sent the prescriptions electronically to [facility] in [place]. Return if worsening. [facility] should call you if you have not heard from them by Sunday please call them. I am prescribing a short course of narcotic pain medication for you. These are potentially dangerous and addictive medications that should be used carefully. These medications may constipate you. Take an zdpg-lna-kwxqgxz stool softener (docusate) twice daily with plenty of water while taking these medications. If you go 24 hours without a bowel movement, take usgm-xap-mnczbbc miralax, per package instructions. Do not drink or drive while taking these medications. If you received narcotic or sedating medications while in the emergency department, do not drive for 24 hours. Store this medication in a safe, secure place and out of reach of children. It is a violation of federal law to give or sell this medication to another person or to use in a manner other than prescribed. The ED will not refill narcotic prescriptions, including prescriptions lost or stolen. To dispose of unwanted medications: 1. [facility] at [address] [facility] in [place] has a medication drop box. They accept prescription medications (in pill form) Sunday through Sunday 9:00 a.m. to 5:00 p.m. 2. The [facility] [employer] accepts prescription medications (in pill form only) for disposal year round. Call for more information. 3. Contact the [facility] for the next [facility] sponsored prescription drug collection event. , [phone], or [phone]; Note that many narcotic pain relievers also contain Tylenol/acetaminophen. Please ensure that your total dose of acetaminophen from all sources does not exceed 3 g (3000 mg) per day.
[2022-01-29] MEDS ORDERED: BUPIVACAINE 0.25% PF 30 ML VIAL ONE (18:25)
--- OUTSIDE RECORDS SUMMARY | 2022-01-29 18:44 | EXTERNAL MEDICAL SUMMARY RPT | Continuity of Care Document ---
:1955 Author Organization [facility] Address [address] [phone] Phone Allergies No information. Encounters No information. Medications No information. Problems date description facility 20211218 Hand Injury [facility] 20211218 F HAND INJURY [facility] 20211218 Displaced fracture of distal phalanx of [facility] left thumb, initial encounter for open fracture 20211218 Crushing injury of left hand, initial [facility] encounter Results No information.
--- NOTE | 2022-01-29 18:46 | XRAY Report ---
PROCEDURE: Finger(s) LT INDICATIONS: L thumb infection TECHNIQUE: AP hand, 2 views of the left first finger(s) acquired. COMPARISON: None FINDINGS: Bones: Comminuted fracture of the first distal phalange. No osseous erosive changes. Soft tissues: No suspicious soft tissue calcifications. No soft tissue gas. IMPRESSION: First distal phalange fracture. No sanjeev evidence of osteomyelitis. Please note plain-film radiographs can be insensitive to changes of osteomyelitis in the initial 15 days of the disease. If there is continued clinical concern for os teomyelitis, consider three-phase nuclear medicine bone scan or MRI for additional evaluation. Reviewed by: Sahara Dillard MD, PhD on 01/29/2022 6:44 PM PDT Approved by: Sahara Dillard MD, PhD on 01/29/2022 6:44 PM PDT Station ID: [id number]
[2022-01-29] MEDS ORDERED: PROPOFOL 200 MG/20 ML VIAL IVP STA ×2 (19:10→20:00)
[2022-01-29] MEDS ORDERED: ceFAZolin 1 GM VIAL IM STA (20:00)
[2022-01-29] MEDS ORDERED: HYDROmorphone 1 MG/ML CARPUJECT IVP STA ×2 (20:10→20:25)
[2022-01-29] MEDS ORDERED: ceFAZolin 1 GM in SODIUM CHLORIDE 0.9% MINIBAG 100 ML IV STA (20:19)
[2022-01-29] MEDS ORDERED: oxyCODONE/ACET 5/325 Prepack 4 PO STA (21:09)
[2022-01-29 21:11] VITALS: BP 179/73
== END 2022-01-29 21:22 | disposition home or self-care (01) ==
LOC: ED 18:03
DX: L03.012 Cellulitis of left finger (principal)
CPT/HCPCS: 26010; 73140; 96365; 96375; 99152; 99283; 99284; J1170; 94770

== ENCOUNTER 2022-02-10 09:46 | Outpatient (CLI) | payer MEDICARE ==
[2022-02-10 15:16] LABS: CALCIUM 9.6 mg/dL (8.5-10.3); CREATININE 0.9 mg/dL (0.4-1.0); POTASSIUM 3.8 mmol/L (3.5-5.0)
== END 2022-02-10 09:47 | disposition home or self-care (01) ==
LOC: LAB.S 09:46
PROVIDERS: ATTEND Nurse Practitioner Family
DX: L08.9 Local infection of the skin and subcutaneous tissue, unspecified (principal)
CPT/HCPCS: 36415; 80048

== ENCOUNTER 2022-03-04 08:00 | Outpatient (CLI) | payer MEDICARE | END 2022-03-04 23:59 | disposition home or self-care (01) | LOC: LAB.S 08:00 | PROVIDERS: ATTEND Physician Assistant Medical | DX: R09.81 Nasal congestion (principal); R07.0 Pain in throat; Z20.822 Contact with and (suspected) exposure to COVID-19 | CPT/HCPCS: 87070; U0004 ==

== ENCOUNTER 2022-10-11 10:21 | Outpatient (CLI) | payer MEDICARE ==
--- NOTE | 2022-10-11 12:57 | XRAY Report ---
PROCEDURE: Chest 2 View X-Ray INDICATIONS: XRAY DYSPNEA TECHNIQUE: 2 views of the chest were acquired. COMPARISON: CT chest 08/11/2021, chest radiographs 03/09/2021 FINDINGS: Surgical changes and devices: None. Lungs and pleura: No pleural effusions or pneumothorax. Lungs are clear. Focal linear horizontal s carring or atelectasis in the lateral left lung. Mediastinum: Mediastinal contours are normal. Heart size is normal. Bones and chest wall: No suspicious bony abnormalities. Soft tissues appear unremarkable. IMPRESSION: No acute cardiopulmonary abnormality. Reviewed by: David Bailey MD on 10/11/2022 12:56 PM PST Approved by: David Bailey MD on 10/11/2022 12:56 PM PST Station ID: [id number]
== END 2022-10-11 10:22 | disposition home or self-care (01) ==
LOC: DI.S 10:21
PROVIDERS: ATTEND Nurse Practitioner Family
DX: R06.00 Dyspnea, unspecified (principal)

== ENCOUNTER 2022-12-26 15:29 | Outpatient (CLI) | payer MEDICARE ==
--- NOTE | 2022-12-26 19:20 | XRAY Report ---
PROCEDURE: Orbits Complete INDICATIONS: INJURY TO FACE TECHNIQUE: 5 views of the orbits acquired. COMPARISON: None FINDINGS: Bones: No fractures; orbital rims appear intact throughout. No suspicious bony lesions. Visualized sinuses appear clear. Soft tissues: No suspicious soft tissue calcifications or densities. IMPRESSION: Unremarkable orbits and facial bone radiographs Reviewed by: Neo Knox MD on 12/26/2022 6:19 PM MARILYN Approved by: Neo Knox MD on 12/26/2022 6:19 PM AKSHARON Station ID: [id number]
== END 2022-12-26 15:30 | disposition home or self-care (01) ==
LOC: DI.S 15:29
PROVIDERS: ATTEND Nurse Practitioner Family
DX: S09.93XA Unspecified injury of face, initial encounter (principal)

== ENCOUNTER 2023-01-22 08:48 | Outpatient (CLI) | payer MEDICARE ==
--- NOTE | 2023-01-23 10:23 | Mammography Report ---
BILATERAL DIGITAL SCREENING MAMMOGRAM 3D/2D: 01/22/2023 CLINICAL: Routine screening. Comparison is made to exams dated: 08/11/2021 mammogram, 07/13/2021 mammogram, 04/16/2019 mammogram - [facility], 10/27/2015 mammogram - [facility], and 03/15/2018 mammogram - [facility]. There are scattered areas of fibroglandular density in both breasts (category b / 25%-50% glandular t issue). No significant masses, calcifications, or other findings are seen in either breast. There has been no significant interval change. IMPRESSION: NEGATIVE There is no mammographic evidence of malignancy. A 1 year screening mammogram is recommended. Based on the Tyrer Cuzick model (a risk assessment model) the patients lifetime risk is 11.0% and he r 10 year risk is 6.1%. According to the ACR, ACS, and NCCN guidelines, an annual breast MRI exam una ng with mammogram is recommended if the patients lifetime risk is 20% or greater. This exam was interpreted at Station ID: [id number]. NOTE: For mammograms, a report in lay terms will be sent to the patient. Approximately 15% of breast malignancies will not be visualized mammographically. In the management of a palpable breast mass, a negative mammogram must not discourage biopsy of a clinically suspicious lesion. Electronically Signed By: Valentin puga/dia:01/22/2023 13:38:21 letter sent: No_Letter ACR BI-RADS Category 1: Negative 3341F PARENCHYMAL PATTERN: (A) - The breast(s) demonstrate(s) scattered fibroglandular densities. BI-RADS CATEGORY: (1) - 1 Mammogram [id number] 1 year screening LATERALITY: (B)
== END 2023-01-22 08:49 | disposition home or self-care (01) ==
LOC: DI 08:48
PROVIDERS: ATTEND Nurse Practitioner Family
DX: Z12.31 Encounter for screening mammogram for malignant neoplasm of breast (principal)

== ENCOUNTER 2023-01-22 08:48 | Outpatient (CLI) | payer MEDICARE ==
--- NOTE | 2023-01-22 11:57 | CT Report ---
PROCEDURE: HEAD WO INDICATIONS: TOBACCO DEPENDENCE, HEAD INJURY TECHNIQUE: Noncontrast 4.5 mm thick angled axial sections acquired from the foramen magnum to the vertex. For r adiation dose reduction, the following was used: automated exposure control, adjustment of mA and/or kV according to patient size. COMPARISON: Correlation is made with orbits plain films, 12/26/2022. FINDINGS: Image quality: There is streak artifact seen through the skull base. CSF spaces: Basal cisterns are patent. No extra-axial fluid collections. Ventricles are normal in size and shape. Brain: No midline shift. No intracranial masses or hemorrhage. Field-white matter interface is norm al. Age-appropriate brain parenchymal volume loss and chronic small vessel ischemic change can be se en. Skull and face: Calvarium and visualized facial bones are intact, without suspicious lesions. Sinuses: Visualized sinuses and mastoids are clear. IMPRESSION: No significant posttraumatic abnormality is seen. No intracranial hemorrhage is seen. Negative for calvarial fracture. Reviewed by: Kings Delgadillo MD on 01/22/2023 10:56 AM MARILYN Approved by: Kings Delgadillo MD on 01/22/2023 10:56 AM MARILYN Station ID: [id number]
--- NOTE | 2023-01-22 19:04 | CT Report ---
PROCEDURE: Low Dose Lung Cancer Screen INDICATIONS: HIST OF SMOKING TECHNIQUE: Noncontrast low-dose axial images were acquired from the pulmonary apices to the posterior costophren ic angles. Multiplanar MIP reformats were then reconstructed. For radiation dose reduction, the follo wing was used: automated exposure control, adjustment of mA and/or kV according to patient size. COMPARISON: 08/11/2021, 12/11/2018 FINDINGS: Image quality: Excellent. Prior cancer history: Unsure. Lungs and pleura: No pleural effusions. No pneumothorax. No suspicious pulmonary nodules which requi re follow up. For example, stable 2 mm subpleural nodule in the left lower lobe (image 175/series 4). Stable lingular scarring. Minimal bibasilar atelectasis. Mediastinum: Heart size is normal. No pericardial effusions. No mediastinal adenopathy by size criter ia. No large vessel abnormality. Scattered atherosclerotic calcifications of the thoracic aorta. Mini mal atherosclerotic scarring calcifications of the coronary arteries. Chest wall and lower neck: Thyroid is unremarkable. No axillary or supraclavicular adenopathy by size . Bones: No aggressive osseous abnormality. No acute compression fracture. Multilevel thoracic spondylo sis. Upper Abdomen: Hepatic steatosis. Other visualized upper abdominal structures appear unremarkable. IMPRESSION: Lung RAD: 2 - Benign. Recommendation: Continue annual screening in 12 Months with LDCT Non-Lung Significant Findings: None Reviewed by: Wellington Vinson MD on 01/22/2023 7:02 PM PDT Approved by: Wellington Vinson MD on 01/22/2023 7:02 PM PDT Station ID: [id number]
== END 2023-01-22 08:49 | disposition home or self-care (01) ==
LOC: DI 08:48
PROVIDERS: ATTEND Nurse Practitioner Family
DX: Z12.2 Encounter for screening for malignant neoplasm of respiratory organs (principal); F17.210 Nicotine dependence, cigarettes, uncomplicated; S09.90XA Unspecified injury of head, initial encounter

== ENCOUNTER 2023-06-01 09:56 | Outpatient (CLI) | payer MEDICARE | END 2023-06-01 09:57 | disposition home or self-care (01) | LOC: LAB 09:56 | PROVIDERS: ATTEND Nurse Practitioner Family | DX: R10.9 Unspecified abdominal pain (principal) | CPT/HCPCS: 36415; 83605 ==

== ENCOUNTER 2024-01-05 09:29 | Outpatient (CLI) | payer MEDICARE | END 2024-01-05 23:59 | disposition critical access hospital (66) | LOC: EMS 09:29 | DX: R07.9 Chest pain, unspecified (principal); M54.2 Cervicalgia; R68.84 Jaw pain | CPT/HCPCS: A0425; A0429 ==

== ENCOUNTER 2024-01-05 10:00 | Emergency (ER) | payer MEDICARE ==
--- NOTE | 2024-01-05 10:21 | ED Physician Documentation ---
PD HPI CHEST PAIN - Stated complaint Stated Complaint: CHEST PX - History obtained from History obtained from: Patient - History of Present Illness Timing - onset: How many hours ago (2 1/2), Today Timing - onset during: Light activity (had gotten out of bed and was just walking around house when developed substernal tightness/cramping pain that went to thoracic back. Lasted minutes or so then faded. Not returned.) Timing - duration: Minutes Timing - details: Abrupt onset, Now resolved Pain level max: 3 Pain level now: 0 Quality: Tightness, Aching, Pain Location: Substernal Radiation: Jaw, Neck. No: Back Worsened by: Inspiration, Movement, Palpation Similar symptoms before: Has not had sx before Review of Systems Constitutional: denies: Fever, Chills Nose: denies: Rhinorrhea / runny nose, Congestion Throat: denies: Sore throat Respiratory: denies: Cough GI: denies: Abdominal Pain, Nausea, Vomiting, Diarrhea PD PAST MEDICAL HISTORY - Past Medical History Cardiovascular: Hypertension, High cholesterol Respiratory: None Endocrine/Autoimmune: Type 2 diabetes GI: GERD, Colon polyps : None HEENT: None Psych: None Musculoskeletal: Osteoarthritis Derm: None - Past Surgical History Past Surgical History: Yes General: Colonoscopy Ortho: Arthroscopic surgery, 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 - Present Medications Home Medications: Ambulatory Orders Medication Instructions Recorded Confirmed Aspirin 81 mg PO DAILY 07/19/18 01/05/24 Estrogens, Conjugated [Premarin] 0.9 mg PO DAILY 07/19/18 01/05/24 Amlodipine Besylate [Norvasc] 10 mg PO DAILY 03/19/23 01/05/24 Cholecalciferol (Vitamin D3) 5,000 unit PO DAILY 03/19/23 01/05/24 [Vitamin D3] EPINEPHrine [Epinephrine] 0.3 mg IJ ONCE 03/19/23 01/05/24 Losartan [Cozaar] 50 mg PO DAILY 03/19/23 01/05/24 Metformin HCl [Glumetza] 1,500 mg PO DAILY 03/19/23 01/05/24 - Allergies Allergies/Adverse Reactions: Allergies Allergy/AdvReac Type Severity Reaction Status Date / Time bacitracin Allergy Rash Verified 01/05/24 10:23 [From Neosporin (xyl-cqg-aymlf)] bee venom protein (honey bee) Allergy Hives Verified 01/05/24 10:23 neomycin Allergy Rash Verified 01/05/24 10:23 [From Neosporin (dxm-jwp-sglsa)] polymyxin B Allergy Rash Verified 01/05/24 10:23 [From Neosporin (zip-ehh-dtepv)] pramoxine Allergy Rash Verified 01/05/24 10:23 [From Neosporin Plus PainRelief(alice)] - Social History Does the pt smoke?: No Smoking Status: Current every day smoker Does the pt drink ETOH?: Yes - Family History Family history: reports: CAD - POLST Patient has POLST: No PD ED PE NORMAL - Vitals Vital signs reviewed: Yes - General General: Alert and oriented X 3, No acute distress, Well developed/nourished - Cardiac Cardiac: RRR, No murmur - Respiratory Respiratory: No respiratory distress, Clear bilaterally, Other (no chest wall tenderness) - Abdomen Abdomen: Soft, Non tender - Derm Derm: Normal color, Warm and dry - Extremities Extremities: No deformity, Normal ROM s pain, No edema, No calf tenderness / cord - Neuro Neuro: Alert and oriented X 3, No motor deficit, No sensory deficit Results - Vitals Vitals: Oxygen O2 Source Room air - EKG (time done) 10:42 EKG releavant findings:: EKG personally interpreted by author of this note. Relevant findings are: Rate: Rate (enter#) (66) Rhythm: NSR [place]: Normal Intervals: Normal VT QRS: Normal Ischemia: Normal ST segments. No: ST elevation c/w ischemia, ST depression - Labs Labs: Laboratory Tests 01/05/24 01/05/24 10:29 10:29 WBC 9.8 RBC 4.93 Hgb 14.8 Hct 45.3 MCV 91.9 MCH 30.0 MCHC 32.7 RDW 13.0 Plt Count 253 MPV 10.9 H Neut # (Auto) 5.7 Lymph # (Auto) 3.2 [place] # (Auto) 0.6 Eos # (Auto) 0.1 Baso # (Auto) 0.0 Absolute Nucleated RBC 0.00 Nucleated RBC % 0.0 Sodium 139 Potassium 3.9 Chloride 105 Carbon Dioxide 27 Anion Gap 7.0 BUN 10 Creatinine 0.8 Estimated GFR (MDRD) 71 L Glucose 100 Calcium 9.9 Magnesium 2.0 Total Bilirubin 0.5 AST 18 ALT 29 Alkaline Phosphatase 90 Troponin I High Sens < 2.3 L Total Protein 6.5 Albumin 4.3 Globulin 2.2 Albumin/Globulin Ratio 2.0 Lipase 32 - Rads (name of study) chest xray Relevant Findings:: Prelim report reviewed, EMP independent interpretation of test (no acute process) PD Medical Decision Making - ED course Complexity details: reviewed results, considered differential (brief substernal chest pain this morning 2 1/2 hours ago then resolved without recurrence. ECG, CXR nd trop are negative at this time. I feel single trop at this timing is conclusive of no ACS. ), d/w patient Departure - Departure Disposition: Home, Self Care Clinical Impression: Chest pain Condition: Stable Record reviewed to determine appropriate education?: Yes Instructions: ED Chest Pain Atypical Unkn Cause Follow-Up: Mirna Womack ARNP [Primary Care Provider] - Comments: Your EKG, chest x-ray, blood tests are normal. In particular the blood test was called troponin and is specific for any signs of heart muscle injury (heart attack/heart failure). This was completely normal. Unclear the cause of your pain episode he had earlier. Things that would not show on the above tests could be esophageal irritation or muscular or such. Consideration could be some early muscle or chest irritation related to an illness. See how you feel over the next couple of days. Otherwise follow-up with your primary care if recurring episodes. If this was a one-time episode then no further follow-up necessarily needed. For subsequent mild episodes if you do get, you could try antacids such as Maalox or Mylanta to see if it is esophageal. Forms: PCP List Discharge Date/Time: 01/05/24 11:38
[2024-01-05 10:34] LABS: BASOPHILS % (AUTO) 0.3 %; EOSINOPHILS # (AUTO) 0.1 10^3/uL (0.0-0.7); EOSINOPHILS % (AUTO) 1.2 %; HCT - HEMATOCRIT 45.3 % (37.0-47.0); HGB - HEMOGLOBIN 14.8 g/dL (12.0-16.0); LYMPHOCYTES # (AUTO) 3.2 10^3/uL (1.5-3.5); LYMPHOCYTES % (AUTO) 32.9 %; MEAN CORPUSCULAR HGB CONC 32.7 g/dL (32.0-36.0); MEAN CORPUSCULAR VOLUME 91.9 fL (81.0-99.0); MEAN PLATELET VOLUME 10.9 fL (7.9-10.8); MONOCYTES # (AUTO) 0.6 10^3/uL (0.0-1.0); MONOCYTES % (AUTO) 6.4 %; NEUTROPHILS # (AUTO) 5.7 10^3/uL (1.5-6.6); NEUTROPHILS % (AUTO) 58.3 %; PLT - PLATELET COUNT 253 10^3/uL (130-450); RED BLOOD COUNT 4.93 10^6/uL (4.20-5.40); WHITE BLOOD COUNT 9.8 x10^3/uL (4.8-10.8)
[2024-01-05 10:48] LABS: ALBUMIN 4.3 g/dL (3.2-5.5); ALKALINE PHOSPHATASE 90 IU/L (42-121); ALT ALANINE AMINOTRANSFERASE 29 IU/L (10-60); AST ASPARTATE AMINOTRANSFERASE 18 IU/L (10-42); BILIRUBIN,TOTAL 0.5 mg/dL (0.2-1.0); BUN - BLOOD UREA NITROGEN 10 mg/dL (6-20); CALCIUM 9.9 mg/dL (8.5-10.3); CARBON DIOXIDE - CO2 27 mmol/L (21-32); CHLORIDE 105 mmol/L (101-111); CREATININE 0.8 mg/dL (0.6-1.3); GFR - MDRD 71 (>89); GLUCOSE 100 mg/dL (74-104); LIPASE 32 U/L (11-82); POTASSIUM 3.9 mmol/L (3.5-4.5); SODIUM 139 mmol/L (135-145); TOTAL PROTEIN 6.5 g/dL (6.4-8.9)
[2024-01-05 10:53] LABS: TROPONIN I HIGH SENSITIVITY < 2.3 ng/L (2.3-14.8)
--- NOTE | 2024-01-05 11:16 | XRAY Report ---
PROCEDURE: Chest 1V INDICATIONS: Chest Pain TECHNIQUE: One view of the chest was acquired. COMPARISON: Chest x-ray 10/11/2022 FINDINGS: Surgical changes and devices: None. Lungs and pleura: No pleural effusions or pneumothorax. Lungs are clear. Mediastinum: Mediastinal contours appear normal. Heart size is minimally prominent. Bones and chest wall: No suspicious bony lesions. Overlying soft tissues appear unremarkable. IMPRESSION: No acute cardiopulmonary process. Reviewed by: Rosalba Garnica MD on 01/05/2024 11:14 AM PDT Approved by: Rosalba Garnica MD on 01/05/2024 11:14 AM PDT Station ID: [id number]
[2024-01-05 11:41] VITALS: BP 122/89; O2SAT 98
== END 2024-01-05 11:38 | disposition home or self-care (01) ==
LOC: EDUNIT# → ED 10:00
DX: R07.9 Chest pain, unspecified (principal); I10 Essential (primary) hypertension; E78.00 Pure hypercholesterolemia, unspecified; E11.9 Type 2 diabetes mellitus without complications; Z86.010 Personal history of colon polyps; Z79.84 Long term (current) use of oral hypoglycemic drugs; Z79.899 Other long term (current) drug therapy
CPT/HCPCS: 36415; 80053; 83690; 83735; 84484; 85025; 93005; 99283; 99284

== ENCOUNTER 2024-02-25 14:34 | Outpatient (CLI) | payer MEDICARE ==
--- NOTE | 2024-02-26 16:35 | Ultrasound Report ---
PROCEDURE: Carotid Doppler Complete INDICATIONS: NECK PAIN TECHNIQUE: Color and pulse Doppler interrogation was performed of both carotid systems, with image documentation and velocity measurements. COMPARISON: None. FINDINGS: Right side: Brachial blood pressure: 121 mm Hg. Common carotid artery peak systolic velocity: 67.3 cm/sec. Internal carotid artery peak systolic velocity: 56.8 cm/sec. Internal carotid artery end diastolic velocity: 20.8 cm/sec. External carotid artery peak systolic velocity: 61.7 cm/sec. ICA/CCA peak systolic ratio: 0.8 . Field scale imaging description: Mild atherosclerotic plaque. Percent internal carotid artery stenosis: Less than 50 percent stenosis. Vertebral artery: Not well seen. Left side: Brachial blood pressure: 120 mm Hg. Common carotid artery peak systolic velocity: 61.4 cm/sec. Internal carotid artery peak systolic velocity: 56.9 cm/sec. Internal carotid artery end diastolic velocity: 15.2 cm/sec. External carotid artery peak systolic velocity: 48.8 cm/sec. ICA/CCA peak systolic ratio: 0.9 . Field scale imaging description: Mild atherosclerotic plaque. Percent internal carotid artery stenosis: Less than 50 percent stenosis. Vertebral artery: Flow direction is antegrade. IMPRESSION: 1. In the right internal carotid artery, there is less than 50 percent stenosis based on peak systoli c velocity criteria. 2. In the left internal carotid artery, there is less than 50 percent stenosis based on peak systolic velocity criteria. 3. Right vertebral artery is not well seen 4. Antegrade blood flow within the left vertebral artery. The estimate of stenosis included in the report of the imaging study was calculated using the [facility]-end orsed standards of carotid artery stenosis. Reviewed by: Rodolfo Muñoz MD on 02/26/2024 4:34 PM PDT Approved by: Rodolfo Muñoz MD on 02/26/2024 4:34 PM PDT Station ID: [id number]
== END 2024-02-25 14:35 | disposition home or self-care (01) ==
LOC: DI 14:34
PROVIDERS: ATTEND Internal Medicine Cardiovascular Disease
DX: I65.23 Occlusion and stenosis of bilateral carotid arteries (principal)
CPT/HCPCS: 93880

== ENCOUNTER 2024-05-19 07:04 | Outpatient (CLI) | payer MEDICARE ==
[2024-05-19 15:43] LABS: BASOPHILS % (AUTO) 0.4 %; EOSINOPHILS # (AUTO) 0.2 10^3/uL (0.0-0.7); EOSINOPHILS % (AUTO) 2.6 %; HGB - HEMOGLOBIN 14.4 g/dL (12.0-16.0); LYMPHOCYTES # (AUTO) 3.2 10^3/uL (1.5-3.5); LYMPHOCYTES % (AUTO) 35.4 %; MEAN CORPUSCULAR HEMOGLOBIN 30.3 pg (27.0-31.0); MEAN CORPUSCULAR VOLUME 94.5 fL (81.0-99.0); MEAN PLATELET VOLUME 11.9 fL (7.9-10.8); MONOCYTES # (AUTO) 0.5 10^3/uL (0.0-1.0); NEUTROPHILS # (AUTO) 4.9 10^3/uL (1.5-6.6); NEUTROPHILS % (AUTO) 54.8 %; PLT - PLATELET COUNT 258 10^3/uL (130-450); RED BLOOD COUNT 4.76 10^6/uL (4.20-5.40); RED CELL DISTRIBUTION WIDTH 13.6 % (12.0-15.0)
[2024-05-19 16:27] LABS: INR 0.9 (0.8-1.2); PT - PROTHROMBIN TIME 10.4 secs (9.9-12.6)
== END 2024-05-19 07:05 | disposition home or self-care (01) ==
LOC: LAB.S 07:04
PROVIDERS: ATTEND Internal Medicine Cardiovascular Disease
DX: R06.02 Shortness of breath (principal)
CPT/HCPCS: 36415; 85025; 85610; 85730

== ENCOUNTER 2024-06-10 08:56 | Outpatient (CLI) | payer MEDICARE ==
--- NOTE | 2024-06-11 15:30 | Mammography Report ---
BILATERAL DIGITAL SCREENING MAMMOGRAM 3D/2D: 06/10/2024 CLINICAL: Routine screening. Family history of breast cancer. Comparison is made to exams dated: 01/22/2023 mammogram, 08/11/2021 mammogram, and 07/13/2021 mammogra m - [facility]. There are scattered areas of fibroglandular density (category b / 25%-50% glandular tissue). No significant masses, calcifications, or other findings are seen in either breast. There has been no significant interval change. IMPRESSION: NEGATIVE There is no mammographic evidence of malignancy. A 1 year screening mammogram is recommended. Based on the Tyrer Cuzick model (a risk assessment model) the patient's lifetime risk is 10.9% and he r 10 year risk is 6.9%. According to the ACR, ACS, and NCCN guidelines, an annual breast MRI exam una ng with mammogram is recommended if the patient's lifetime risk is 20% or greater. This exam was interpreted at Station ID: [id number]. NOTE: For mammograms, a report in lay terms will be sent to the patient. Approximately 15% of breast malignancies will not be visualized mammographically. In the management of a palpable breast mass, a negative mammogram must not discourage biopsy of a clinically suspicious lesion. Electronically Signed By: David may/dia:06/10/2024 13:05:35 letter sent: No_Letter ACR BI-RADS Category 1: Negative 3341F PARENCHYMAL PATTERN: (A) - The breast(s) demonstrate(s) scattered fibroglandular densities. BI-RADS CATEGORY: (1) - 1 RECOMMENDATION: (ANNUAL) - Recommend routine annual screening mammography. [id number] 1 year screening LATERALITY: (B)
== END 2024-06-10 08:57 | disposition home or self-care (01) ==
LOC: DI.S 08:56
PROVIDERS: ATTEND Nurse Practitioner Family
DX: Z12.31 Encounter for screening mammogram for malignant neoplasm of breast (principal); Z80.3 Family history of malignant neoplasm of breast